=== PATIENT | female | born 1990 | race Caucasian/White ===

== ENCOUNTER 2021-11-20 02:50 | Inpatient (IN) | payer OTHER ==
[2021-11-20] VITALS (28 sets, daily range): BP systolic 51–193; BP diastolic 25–174
[~2021-11-20] VITALS: Ht 157.5 cm; Wt 121.7 kg
[~2021-11-20 02:50] MED LIST: KEFLEX500 M1 PO; SPRINTEC1 EACH PO
[2021-11-20 05:37] LABS: HCO3 25.3 mmol/L (22.0-26.0); PCO2 27.9 mmHg (35.0-45.0); PO2 103.1 mmHg (80.0-100.0); pH 7.576 (7.360-7.450); sO2 98.5 % (92.0-98.0)
--- NOTE | 2021-11-20 07:29 | NUR ---
Patient arrived to the unit at 0445 via EMS. Patient placed on full ICU monitoring. RT at bedside. Pt O2 sats in the 60's. ETT in place 7.5, 23 at lip. Placed on vent, settings 500 AC 22 peep 18 100%. O2 sats went down into the 50's Immediately started bagging the patient and sat jumped to 100%. Continued to bag patient for about 15 minutes, placed back on vent and sats immediately started dropping. Bagged again as respiratory made changes to vent. Started Propofol, in addition to the Versed at 8 mg/hr and Fentanyl at 150 mcg/hr that was running upon admission. With increased sedation and changes to the TV, inc to 600, pt was able to maintain O2 sats 90-91%. ABG done. Results noted. 2 PIVs started. Antibiotics started. See documentation on intervantions for assessment details. Was unable to draw from PICC. Called lab to draw all initial labs. Delgado in place. 750 mls.
[2021-11-20 07:34] LABS: CALCIUM 8.1 mg/dL (8.5-10.1); CREATININE 0.9 mg/dL (0.6-1.0); POTASSIUM 3.8 mmol/L (3.5-5.1)
[2021-11-20 07:35] LABS: INR 1.12; PROTIME 12.1 Seconds (10.5-12.1)
[2021-11-20 07:41] LABS: APTT < 20.0 Seconds (24.5-32.8)
[2021-11-20 07:49] LABS: ALBUMIN 3.7 g/dL (3.4-5.0); PHOSPHORUS 2.2 mg/dL (2.5-4.9); TOTAL BILIRUBIN 0.6 mg/dL (0.2-1.0); TOTAL PROTEIN 7.3 g/dL (6.4-8.2)
[2021-11-20 07:57] LABS: CHOLESTEROL 311 mg/dL (<200); HDL CHOLESTEROL 24 mg/dL (>40); TRIGLYCERIDE 614 mg/dL (<150); VLDL 123 mg/dL (<40)
[2021-11-20 09:10] LABS: BE(vivo) 6.1 mmol/L (-2 to +3); HCO3 29.5 mmol/L (22.0-26.0); PCO2 38.2 mmHg (35.0-45.0); PO2 58.7 mmHg (80.0-100.0); pH 7.506 (7.360-7.450); sO2 92.7 % (92.0-98.0)
--- NOTE | 2021-11-20 12:50 | NUR ---
5FRTL CL PLACED, PT HAS A CURRENT DLPICC IN RT ARM THAT HAD A SOILED DRESSING WHEN PT TRANSFERRED FROM OTHER FACILITY
[2021-11-20 14:13] LABS: HEMATOCRIT 35.7 % (37.0-47.0); HEMOGLOBIN 11.3 gm/dL (12.0-15.0); MCH 31.7 pg (26.0-34.0); MCHC 31.7 g/dL (28.0-37.0); MCV 99.9 fL (80.0-100.0); RBC 3.58 mil/uL (4.20-5.00); WBC 19.4 thou/uL (4.0-11.0)
[2021-11-20 14:23] LABS: CALCIUM 7.4 mg/dL (8.5-10.1); CREATININE 1.1 mg/dL (0.6-1.0)
[2021-11-20 14:41] LABS: BE(vivo) -1.5 mmol/L (-2 to +3); HCO3 22.9 mmol/L (22.0-26.0); PCO2 37.5 mmHg (35.0-45.0); PO2 89.7 mmHg (80.0-100.0); pH 7.404 (7.360-7.450); sO2 96.9 % (92.0-98.0)
[2021-11-20 14:44] LABS: URINE BILIRUBIN NEGATIVE (Negative); URINE BLOOD 3+ (Negative); URINE CLARITY CLEAR; URINE COLOR YELLOW; URINE GLUCOSE-RANDOM* 2+ (Negative); URINE KETONES TRACE (Negative); URINE LEUKOCYTES-REFLEX NEGATIVE (Negative); URINE NITRITE-REFLEX NEGATIVE (Negative); URINE PROTEIN (DIPSTICK) 2+ (Negative); URINE SPECIFIC GRAVITY 1.025 (1.005-1.035); URINE UROBILINOGEN 0.2 E.U./dl (0.2-1.0)
[2021-11-20 15:00] LABS: CASTS None Seen /LPF (None Seen); SQUAMOUS None Seen /LPF (0-3); URINE RBC >20 Many /HPF (NONE SEEN); URINE WBC-REFLEX None Seen /HPF (0-5)
[2021-11-20 15:01] LABS: BACTERIA-REFLEX None Seen /HPF (None Seen); CRYSTALS None Seen /LPF (None Seen)
--- NOTE | 2021-11-20 21:59 | NUR ---
0859-IN ROOM W PT. PT'S HR DOWN SUDDENLY TO 40'S,ANIYAH RHYTHM-NO PULSE PALPATED-CODE BLUE CALLED & CPR STARTED IMMED. SEE CODE BLUE NOTES.--VW 0945-PAGE TO .--VW 0950-PAGE TO (COVERING PT,PER ).--VW 1000-SPOKE W PT'S MOM,UPDATED. MUCH EMO SUPPORT GIVEN.--VW 1100- E.R. PHYSICIAN & HAD DISCUSSED HYPOTHERMIA PROTOCOL WHEN AT BEDSIDE p CODE. D/W WHEN HE WAS UPDATED RE:EVENTS THAT TOOK PLACE. SPOKE W DR.S AYALA & ANNABEL RE:CONSULTS. IV THERAPY AT BEDSIDE.--VW 1200-ECHO DONE.--VW 1300-ALL LABS ORDERED PREVIOUSLY SENT ONCE LINE WAS VERIFIED.--VW 1430-UPDATED VIA [employer] PhotosO TEXT.--VW
[2021-11-21] VITALS (63 sets, daily range): BP systolic 60–141; BP diastolic 18–94
--- NOTE | 2021-11-21 01:50 | 2DMMODE ---
[facility] [address] [place] [address] 2 D/M-MODE ECHOCARDIOGRAM Name: LALO SIU Room #: 237-P ADM IN M.R.#: [id number] Admission: 11/20/21 Attend Phys: Ar San MD Discharge: Date of : 89 Report #: [id number] THIS REPORT FOR: cc: FAM - No family physician/PCP FAM - No family physician/PCP Man Chaparro MD ~ APPROVED REPORT Study performed: 11/20/2021 11:48:01 EXAM: Comprehensive 2D, Doppler, and color-flow Echocardiogram Patient Location: In-Patient Room #: 237 Status: on-call BSA: 2.08 HR: 90 bpm BP: 129/94 mmHg Rhythm: NSR Other Information Study Quality: Adequate Technically limited study due to body habitus, inability to position patient, patient on ventilator. Indications Hypertension/HDD Post Code blue + Covid-19 2D Dimensions IVSd: 8.72 (7-11mm) LVOT Diam: 18.80 (18-24mm) LVDd: 42.72 mm PWd: 9.92 (7-11mm) Ascending Ao: 23.58 (22-36mm) LVDs: 32.60 (25-40mm) Left Atrium: 22.78 (27-40mm) Aortic Root: 24.15 mm LV Single Plane 4CH: 46.19 % LV Single Plane 2CH: 52.15 % Volumes Left Atrial Volume (Systole) Single Plane 4CH: 14.39 mL Single Plane 2CH: 14.63 mL Aortic Valve [facility] [address] [place] [address] 2 D/M-MODE ECHOCARDIOGRAM Name: LALO SIU Room #: 237-P [facility] IN .R.#: [id number] Admission: 11/20/21 Attend Phys: Ar San MD Discharge: Date of : 89 Report #: [id number] AoV Peak Cornell.: 1.01 m/s AO Peak Gr.: 4.38 mmHg LVOT Max P.63 mmHg LVOT Max V: 0.95 m/s TEMI Vmax: 2.61 cm2 Mitral Valve E/A Ratio: 1.6 MV Decel. Time: 157.04 ms MV E Max Cornell.: 0.79 m/s MV A Cornell.: 0.49 m/s MV PHT: 45.54 ms IVRT: 101.50 ms Pulmonary Valve PV Peak Cornell.: 0.72 m/s PV Peak Gr.: 2.08 mmHg NH End Vmax: 1.66 m/s Pulmonary Vein P Vein S: 0.34 m/s P Vein D: 0.38 m/s P Vein S/D Ratio: 0.89 Tricuspid Valve TR Peak Cornell.: 2.77 m/s RAP Estimate: 7.00 mmHg TR Peak Gr.: 30.77 mmHg RVSP: 37.00 mmHg Left Ventricle The left ventricle is normal size. Regional wall motion abnormalities are noted. There is normal left ventricular wall thickness. Left ventricular systolic function is mildly decreased. LVEF is 45-50%. The left ventricular diastolic function is normal. Right Ventricle The right ventricle is normal size. The right ventricular systolic function is normal. Atria The left atrium size is normal. The right atrium size is normal. Aortic Valve Aortic valve is trileaflet. No aortic regurgitation is present. There is no aortic valvular stenosis. Mitral Valve The mitral valve is normal in structure. Trace mitral regurgitation. [facility] [address] [address] 2 D/M-MODE ECHOCARDIOGRAM Name: LALO SIU Room #: 237-P ADM IN M.R.#: [id number] Admission: 11/20/21 Attend Phys: Ar San MD Discharge: Date of : 89 Report #: [id number] No evidence of mitral valve stenosis. Tricuspid Valve The tricuspid valve is normal in structure. Mild tricuspid regurgitation. PAP 37 mmHg Pulmonic Valve The pulmonary valve is normal in structure. Trace pulmonic regurgitation. Great Vessels The aortic root is normal in size. IVC is normal in size and collapses >50% with inspiration. Pericardium Mild circumferential pericardial effusion. Small right pleural effusion. <Conclusion> The left ventricle is normal size. LVEF is 30-35%. Regional wall motion abnormalities are noted. The right ventricle is normal size. Aortic valve is trileaflet. The mitral valve is normal in structure. Trace mitral regurgitation. The tricuspid valve is normal in structure. Mild tricuspid regurgitation. PAP 37 mmHg The pulmonary valve is normal in structure. Trace pulmonic regurgitation. The aortic root is normal in size. Mild circumferential pericardial effusion without echo evidence of tamponade. Small right pleural effusion. <ELECTRONICALLY SIGNED> By: Man Chaparro MD 11/21/21148 8 8 Man Chaparro MD /INF
[2021-11-21 03:05] LABS: GLYCOHEMOGLOBIN (HGB A1C) 6.1 % (4.8-5.6)
[2021-11-21 05:35] LABS: BE(vivo) -0.5 mmol/L (-2 to +3); HCO3 24.6 mmol/L (22.0-26.0); PCO2 42.2 mmHg (35.0-45.0); PO2 58.4 mmHg (80.0-100.0); pH 7.383 (7.360-7.450); sO2 89.9 % (92.0-98.0)
--- NOTE | 2021-11-21 06:00 | NUR ---
remains intubated and sedated with fentnyl and versed heaprin gtt per protocal. not progressing toward goals.
[2021-11-21 07:11] LABS: HIV ANTIBODY Non Reactive (Non Reactive)
[2021-11-21 07:18] LABS: HEMATOCRIT 30.7 % (37.0-47.0); MCH 32.5 pg (26.0-34.0); MCHC 32.7 g/dL (28.0-37.0); MCV 99.5 fL (80.0-100.0); PLATELET COUNT 203 thou/uL (150-400); RBC 3.08 mil/uL (4.20-5.00); RDW 14.6 % (10.5-14.5); WBC 19.7 thou/uL (4.0-11.0)
[2021-11-21 07:29] LABS: ALBUMIN 3.3 g/dL (3.4-5.0); DIRECT BILIRUBIN 0.1 mg/dL (<0.1-0.2); MAGNESIUM 2.9 mg/dL (1.8-2.4); POTASSIUM 3.5 mmol/L (3.5-5.1); TOTAL BILIRUBIN 0.4 mg/dL (0.2-1.0); TOTAL PROTEIN 6.5 g/dL (6.4-8.2)
--- NOTE | 2021-11-21 07:39 | EKG ---
[address] [address] ELECTROCARDIOGRAM REPORT Name: LALO SIU Room #: 237-P ADM IN M.R.#: [id number] Admission: 11/20/21 Attend Phys: Ar San MD Discharge: Date of : 89 Report #: [id number] [facility] Test Date: 2021-11-20 Test Time: 09:22:44 Pat Name: LALO SIU Department: Room: 237 P Gender: F Health Care Social Worker: CONSTANCE : 1990 Requested By: Keyshawn Whittington Order Number: [id number] MD: Edil Perez Measurements Intervals [place] Rate: 83 P: AR: QRS: 101 QRSD: 95 T: -25 QT: 385 QTc: 453 Interpretive Statements NSR Borderline right axis deviation Borderline repolarization abnormality No previous ECG available for comparison Electronically Signed On 11-21-2021 7:39:08 BUSINESS UNIT MANAGER by Edil Perez [email or web address] <ELECTRONICALLY SIGNED> By: Edil Perez MD, [facility] 11/21/21 0739 0922 1 Edil Perez MD, FACC /EPI
[2021-11-21 07:56] LABS: BE(vivo) -2.9 mmol/L (-2 to +3); HCO3 22.3 mmol/L (22.0-26.0); PCO2 40.4 mmHg (35.0-45.0); sO2 83.1 % (92.0-98.0)
[2021-11-21 07:57] LABS: PO2 48.8 mmHg (80.0-100.0)
[2021-11-21 08:36] LABS: ABSOLUTE NEUTROPHILS 17.9 thou/uL (1.4-8.2); METAMYELOCYTES 1 %
--- NOTE | 2021-11-21 09:30 | NUR ---
Per Dr Thomas, dc ivf once tube feed/water flush tolerance demonstrated
--- NOTE | 2021-11-21 10:36 | NUR ---
WOUND CARE CONSULT; I AM HERE TODAY TO ASSESS THE PATIENT. THE RN STATES NO WOUNDS AND NO NEED TO FOLLOW. WOUND CARE WILL SIGN OFF.
--- NOTE | 2021-11-21 13:32 | NUR ---
DX: COVID, Sepsis 30 year old female, unvaccinated, no pertinent medical history who presents to as a direct admit for [facility]. Pt was admitted to [facility] about 9 days for COVID PNA. Over the last 48 hrs the pt decompensated, she was on BIPAP with subsequent intubation last evening due to abnormal ABG and P02 OF 40%. Multiple repeated ABG and CXR. Sats prior to transfer was 76% and pt was bagged most of the shift. She had increased LFTS, CPK, and Lipase, the latter of which ahs trended down. She arrived per EMS with reported bagging due to cyanosis. She is critically ill. He 02 sats on arrival to ICU was in the 50's she was again bagged with sats back to 95% but quickly desaturated to 80's upon reconnection. She is currently on levophed, versed, and fentanyl gtt. At [facility] she was given Ivermectin, IV remdesvir , IV dexamethasone , Vitamin bundle and IV abx. Cm called her mom nasra # , left message requesting a call back. Discussed during los with the attending physician. Enhanced isolation. Vent support 100% FIO2 with peep 16. Will cont. following as needed.
[2021-11-21 20:31] LABS: BE(vivo) -5.5 mmol/L (-2 to +3); HCO3 19.2 mmol/L (22.0-26.0); PCO2 34.5 mmHg (35.0-45.0); PO2 64.4 mmHg (80.0-100.0); pH 7.364 (7.360-7.450); sO2 92.1 % (92.0-98.0)
[2021-11-22] VITALS (69 sets, daily range): BP systolic 78–153; BP diastolic 29–76
[2021-11-22 04:21] LABS: HEMATOCRIT 23.4 % (37.0-47.0); MCH 32.5 pg (26.0-34.0); MCHC 32.4 g/dL (28.0-37.0); MCV 100.2 fL (80.0-100.0); PLATELET COUNT 161 thou/uL (150-400); RBC 2.33 mil/uL (4.20-5.00); RDW 14.8 % (10.5-14.5); WBC 18.4 thou/uL (4.0-11.0)
[2021-11-22 05:34] LABS: HEMOGLOBIN 7.6 gm/dL (12.0-15.0)
[2021-11-22 05:54] LABS: ALBUMIN 3.4 g/dL (3.4-5.0); CREATININE 1.9 mg/dL (0.6-1.0); DIRECT BILIRUBIN 0.1 mg/dL (<0.1-0.2); PHOSPHORUS 1.9 mg/dL (2.5-4.9); TOTAL BILIRUBIN 0.5 mg/dL (0.2-1.0); TOTAL PROTEIN 6.1 g/dL (6.4-8.2)
[2021-11-22 06:05] LABS: POTASSIUM 2.9 mmol/L (3.5-5.1)
[2021-11-22 08:43] LABS: ABSOLUTE NEUTROPHILS 16.4 thou/uL (1.4-8.2); ANISOCYTOSIS SLIGHT; METAMYELOCYTES 2 %; MYELOCYTES 2 %; NUCLEATED RBCS 3 /100WBC; TOXIC GRANULATION SLIGHT
[2021-11-22 14:17] LABS: HEMOGLOBIN 8.4 gm/dL (12.0-15.0)
[2021-11-22 14:19] LABS: HEMATOCRIT 25.7 % (37.0-47.0)
--- NOTE | 2021-11-22 14:27 | NUR ---
Discussed during unite rounds and with attending physician. Cont. to require vent support, Tube fed for nutritional support. Message left for her mom yesterday and no return call back. Bedside nurse notified cm and she was providing her mom with update with change in condition today and Pita mom lorrine just hung up, bedside nurse passed on to MD to reach out to her mom. Levophed gtt, oxygen saturation cont to drop under 90% off and on today. Abnormal labs, low hgb and potassium. Remains on Covid isolation. Will cont. following as needed.
--- NOTE | 2021-11-22 15:16 | NUR ---
PT FAMILY CALLED FOR AN UPDATE. WHILE GIVING AN UPDATE FAMILY HUNG UP ON RN BEFORE THEY COULD FINISH. CASE MANAGEMENT AND CHARGE NURSE NOTIFIED
--- NOTE | 2021-11-22 15:17 | NUR ---
UNABLE TO TAKE OFF PT WEDDING RING DUE TO EDEMA. RING CUTTER USED TO REMOVE RING. RING GIVEN TO SECURITY TO HOLD.
--- NOTE | 2021-11-22 18:35 | NUR ---
NOTIFED ELY OF PT POSITIVE FLUID BALANCE. ORDERED ALBUMIN AND LASIX. RN ADDED MORNING LABS PER DOCTOR ORDER
[2021-11-22 23:07] LABS: HEMOGLOBIN 6.7 gm/dL (12.0-15.0); RDW 21.3 % (10.5-14.5); WBC 17.9 thou/uL (4.0-11.0)
[2021-11-22 23:09] LABS: HEMATOCRIT 20.2 % (37.0-47.0); MCH 30.4 pg (26.0-34.0); RBC 2.19 mil/uL (4.20-5.00)
[2021-11-22 23:10] LABS: ALBUMIN 3.9 g/dL (3.4-5.0); CALCIUM 6.7 mg/dL (8.5-10.1); CREATININE 2.6 mg/dL (0.6-1.0)
[2021-11-22 23:28] LABS: POTASSIUM 4.3 mmol/L (3.5-5.1)
[2021-11-22 23:30] LABS: MCV 92.1 fL (80.0-100.0)
[2021-11-23] VITALS (93 sets, daily range): BP systolic 90–171; BP diastolic 41–118
[2021-11-23 03:25] LABS: BE(vivo) -4.5 mmol/L (-2 to +3); HCO3 20.6 mmol/L (22.0-26.0); PCO2 37.6 mmHg (35.0-45.0); PO2 46.7 mmHg (80.0-100.0); pH 7.357 (7.360-7.450); sO2 81.2 % (92.0-98.0)
[2021-11-23 05:16] LABS: ALBUMIN 3.8 g/dL (3.4-5.0); CALCIUM 7.2 mg/dL (8.5-10.1); CREATININE 2.8 mg/dL (0.6-1.0); DIRECT BILIRUBIN 0.2 mg/dL (<0.1-0.2); PHOSPHORUS 1.7 mg/dL (2.5-4.9); POTASSIUM 4.1 mmol/L (3.5-5.1); TOTAL BILIRUBIN 0.6 mg/dL (0.2-1.0); TOTAL PROTEIN 6.2 g/dL (6.4-8.2)
[2021-11-23 09:24] LABS: RBC 2.11 mil/uL (4.20-5.00); WBC 16.5 thou/uL (4.0-11.0)
[2021-11-23 09:27] LABS: HEMOGLOBIN 6.5 gm/dL (12.0-15.0); MCH 31.1 pg (26.0-34.0); MCHC 33.2 g/dL (28.0-37.0); MCV 93.5 fL (80.0-100.0); RDW 21.5 % (10.5-14.5)
[2021-11-23 09:32] LABS: HEMATOCRIT 19.7 % (37.0-47.0)
[2021-11-23 13:59] LABS: BE(vivo) -5.2 mmol/L (-2 to +3); HCO3 20.2 mmol/L (22.0-26.0); PCO2 38.6 mmHg (35.0-45.0); PO2 82.2 mmHg (80.0-100.0); pH 7.336 (7.360-7.450); sO2 95.5 % (92.0-98.0)
[2021-11-23 21:20] LABS: HEMATOCRIT 22.9 % (37.0-47.0); HEMOGLOBIN 7.7 gm/dL (12.0-15.0)
[2021-11-24] VITALS (93 sets, daily range): BP systolic 99–157; BP diastolic 35–76
[2021-11-24 05:08] LABS: BE(vivo) -3.7 mmol/L (-2 to +3); HCO3 21.4 mmol/L (22.0-26.0); PCO2 39.1 mmHg (35.0-45.0); PO2 63.7 mmHg (80.0-100.0); pH 7.357 (7.360-7.450); sO2 91.6 % (92.0-98.0)
[2021-11-24 05:28] LABS: HEMATOCRIT 22.6 % (37.0-47.0); HEMOGLOBIN 7.6 gm/dL (12.0-15.0); MCH 29.7 pg (26.0-34.0); MCHC 33.4 g/dL (28.0-37.0); MCV 88.7 fL (80.0-100.0); PLATELET COUNT 54 thou/uL (150-400); RBC 2.55 mil/uL (4.20-5.00); RDW 19.8 % (10.5-14.5); WBC 11.8 thou/uL (4.0-11.0)
[2021-11-24 05:29] LABS: ALBUMIN 3.5 g/dL (3.4-5.0); CALCIUM 7.6 mg/dL (8.5-10.1); CREATININE 3.4 mg/dL (0.6-1.0); MAGNESIUM 2.6 mg/dL (1.8-2.4); PHOSPHORUS 2.3 mg/dL (2.5-4.9); POTASSIUM 3.9 mmol/L (3.5-5.1); TOTAL BILIRUBIN 0.7 mg/dL (0.2-1.0); TOTAL PROTEIN 5.8 g/dL (6.4-8.2)
[2021-11-24 06:21] LABS: INR 1.15; PROTIME 12.5 Seconds (10.5-12.1)
[2021-11-24 08:19] LABS: ABSOLUTE NEUTROPHILS 10.6 thou/uL (1.4-8.2); METAMYELOCYTES 2 %; NUCLEATED RBCS 2 /100WBC
[2021-11-24 08:20] LABS: ANISOCYTOSIS 2+; PLATELET ESTIMATE DECREASED; POIKILOCYTOSIS 1+
[2021-11-24 09:27] LABS: T-SPOT.TB Negative
--- NOTE | 2021-11-24 09:30 | NUR ---
CVP-25. BUN/CR increasing. call placed to Dr. Dc, then md immediately present. updated on pt status.
[2021-11-24 13:41] LABS: HEMATOCRIT 21.8 % (37.0-47.0); HEMOGLOBIN 7.3 gm/dL (12.0-15.0)
--- NOTE | 2021-11-24 19:48 | NUR ---
called betito Nuñez to update her on pt status. discussed pt opening her eyes to stimulation but not "tracking", remains on vent with optimal settings for her lungs, off iv medication for bp support, sedation for pain and amnesic infusing continously for pt comfort. she volunteered that she was at work and had to get back to work, therefore conversation was prioritized and limited. she was grateful and thankful for update.
[2021-11-24 19:56] LABS: HEMOGLOBIN 7.3 gm/dL (12.0-15.0)
[2021-11-25] VITALS (97 sets, daily range): BP systolic 75–137; BP diastolic 32–73
[2021-11-25 05:31] LABS: ABSOLUTE NEUTROPHILS 11.2 thou/uL (1.4-8.2); BASOPHILS 0.1 % (0.0-2.0); EOSINOPHILS 0.5 % (0.0-3.0); HEMATOCRIT 22.8 % (37.0-47.0); HEMOGLOBIN 7.5 gm/dL (12.0-15.0); LYMPHOCYTES 4.3 % (24.0-44.0); MCH 29.5 pg (26.0-34.0); MCHC 33.1 g/dL (28.0-37.0); MONOCYTES 2.7 % (1.0-8.0); PLATELET COUNT 44 thou/uL (150-400); POLYS 92.4 % (36.0-66.0); RBC 2.56 mil/uL (4.20-5.00); RDW 19.9 % (10.5-14.5); WBC 12.1 thou/uL (4.0-11.0)
[2021-11-25 05:51] LABS: ALBUMIN 3.6 g/dL (3.4-5.0); CREATININE 4.2 mg/dL (0.6-1.0); MAGNESIUM 2.7 mg/dL (1.8-2.4); PHOSPHORUS 3.1 mg/dL (2.5-4.9); TOTAL BILIRUBIN 0.4 mg/dL (0.2-1.0); TOTAL PROTEIN 6.5 g/dL (6.4-8.2)
[2021-11-25 09:28] LABS: BE(vivo) -4.6 mmol/L (-2 to +3); HCO3 21.8 mmol/L (22.0-26.0); PCO2 46.5 mmHg (35.0-45.0)
[2021-11-25 09:29] LABS: PO2 37.1 mmHg (80.0-100.0); pH 7.289 (7.360-7.450)
[2021-11-25 10:00] LABS: HEMOGLOBIN 7.7 gm/dL (12.0-15.0)
[2021-11-25 10:02] LABS: HEMATOCRIT 23.3 % (37.0-47.0)
--- NOTE | 2021-11-25 10:53 | NUR ---
Discussed using unit rounds and during los with the attending physician. Enhanced covid +, isolation. Vent, tpn. Desaturation into 40's and 70's , FIO2 increased to 100%. Getting CXR and ABG. No anticipated dc over weekend. Will cont. following as needed. CM has called nasra ogden with no return call.
[2021-11-25 18:20] LABS: ALBUMIN 3.5 g/dL (3.4-5.0); CALCIUM 7.7 mg/dL (8.5-10.1); POTASSIUM 4.8 mmol/L (3.5-5.1); TOTAL BILIRUBIN 0.9 mg/dL (0.2-1.0); TOTAL PROTEIN 6.2 g/dL (6.4-8.2)
[2021-11-25 18:24] LABS: CREATININE 5.2 mg/dL (0.6-1.0)
--- NOTE | 2021-11-25 19:02 | NUR ---
Rn arrived to patient SpO2 50-60%. Treanding down all night, aware. Called Dr. Thomas at 0814. During Rounds, ordered Lasix, X-ray, ABG, and Labs. ABG critical- CAlled Dr. Thomas with results at 0950, no new orders. Mother called at 1050 and update on current condition. CAlled Carmen at 1450, patient unresponsive to lasix. No output. Albumin and 60 mg lasix order. CAlled Carmen at 1545, BP decreasing. Levo gtt started. CAlled carmen at 1741, with crital Latic. Bolus and Fluids ordered. CAlled mother at 1815 about further deteriation of status and potiental outcomes. Mother okay to come visit per computer operations manager. Must wear full PPE.
[2021-11-25 21:29] LABS: HEMATOCRIT 23.9 % (37.0-47.0); HEMOGLOBIN 7.7 gm/dL (12.0-15.0)
--- NOTE | 2021-11-25 21:32 | NUR ---
Patients mother, Lorrine to bedside at 2100. RN spoke directly with consulting solution manager, Robert in person regarding allowing patients mother to enter COVID positive room. Clarified with Margie and mother is allowed. Discussed risks and importance of PPE. RN donned patients mothers PPE with her and entered room at 2115. Mother to bedside for about 15 minutes. Answered all questions and discussed concerns.
--- NOTE | 2021-11-25 22:26 | NUR ---
Pts brother Breanna came to ICU at 2214. Observed patient from outside of room through glass. Discussed reality of outlook and patient status. Answered all questions. Patient left ICU at 2229.
[2021-11-26] VITALS (91 sets, daily range): BP systolic 79–155; BP diastolic 24–70
--- NOTE | 2021-11-26 03:42 | NUR ---
This RN spoke to MTN at 0340 this morning regarding patient. Referral number is [id number].
[2021-11-26 04:03] LABS: ALBUMIN 3.3 g/dL (3.4-5.0); ANION GAP 20 mmol/L (7-16); BUN 50 mg/dL (7-18); CALCIUM 6.7 mg/dL (8.5-10.1); CHLORIDE 106 mmol/L (98-107); CO2 15 mmol/L (21-32); CREATININE 5.6 mg/dL (0.6-1.0); GLUCOSE 176 mg/dL (74-106); MAGNESIUM 2.8 mg/dL (1.8-2.4); PHOSPHORUS 9.9 mg/dL (2.6-4.7); POTASSIUM 5.1 mmol/L (3.5-5.1); SGOT < 5 U/L (15-37); SODIUM 141 mmol/L (136-145); TOTAL BILIRUBIN 1.3 mg/dL (0.2-1.0); TOTAL PROTEIN 5.8 g/dL (6.4-8.2)
--- NOTE | 2021-11-26 04:13 | NUR ---
This RN spoke to Dr. Thomas at 0300 regarding patients lactic acid, poor urine output and vital signs. Orders received. Pt not progressing towards goals. Will continue to monitor.
[2021-11-26 04:15] LABS: MCH 30.4 pg (26.0-34.0); MCHC 30.6 g/dL (28.0-37.0); RBC 1.59 mil/uL (4.20-5.00); RDW 21.3 % (10.5-14.5); SGPT 5403 U/L (14-59); WBC 16.7 thou/uL (4.0-11.0)
[2021-11-26 04:22] LABS: HEMATOCRIT 15.8 % (37.0-47.0); HEMOGLOBIN 4.8 gm/dL (12.0-15.0); MCV 99.3 fL (80.0-100.0); PLATELET COUNT 15 thou/uL (150-400)
[2021-11-26 09:20] LABS: APTT 44.4 Seconds (24.5-32.8); PROTIME 31.5 Seconds (10.5-12.1)
[2021-11-26 09:27] LABS: INR 3.05
[2021-11-26 11:19] LABS: ABSOLUTE NEUTROPHILS 11.9 thou/uL (1.4-8.2); METAMYELOCYTES 3 %; MYELOCYTES 4 %; NUCLEATED RBCS 7 /100WBC
[2021-11-26 11:20] LABS: POLYCHROMASIA SLIGHT
[2021-11-26 11:21] LABS: ANISOCYTOSIS 2+
[2021-11-26 11:22] LABS: POIKILOCYTOSIS SLIGHT
[2021-11-26 18:29] LABS: MCH 29.2 pg (26.0-34.0); MCHC 28.6 g/dL (28.0-37.0); RDW 18.8 % (10.5-14.5)
[2021-11-26 18:32] LABS: MCV 102.3 fL (80.0-100.0); RBC 1.85 mil/uL (4.20-5.00); WBC 21.7 thou/uL (4.0-11.0)
[2021-11-26 18:56] LABS: HEMATOCRIT 18.9 % (37.0-47.0)
[2021-11-26 18:58] LABS: HEMOGLOBIN 5.4 gm/dL (12.0-15.0)
--- NOTE | 2021-11-26 19:36 | NUR ---
PATIENT NOT PROGRESSING TOWARDS THE PLAN OF CARE EVIDENCED BY CONTINUED NEED FOR BLOOD PRODUCTS AND HIGH VENTILATOR SETTINGS.
[2021-11-27 02:02] VITALS: BP 157/45
[2021-11-27 02:41] LABS: MCH 29.7 pg (26.0-34.0)
[2021-11-27 02:43] LABS: HEMATOCRIT 31.9 % (37.0-47.0); MCHC 28.5 g/dL (28.0-37.0); MCV 104.4 fL (80.0-100.0); RBC 3.05 mil/uL (4.20-5.00); RDW 17.3 % (10.5-14.5); WBC 26.4 thou/uL (4.0-11.0)
[2021-11-27 02:45] LABS: HEMOGLOBIN 9.1 gm/dL (12.0-15.0)
--- NOTE | 2021-11-27 03:25 | NUR ---
Patient went into cardiac arrest. See cardiopulmonary arrest record sheet in patients chart. Dr. James pronounced at 0207. MEN and all referring physicians notified. Patients brother, Chappie and brothers girlfriend to bedside. Patients belongings including cell phone, materials engineering technician and clothes taken home with brother. Family to call with home arrangements.
--- NOTE | 2021-11-28 07:45 | NUR ---
On 11/27/21, had 4 missed calls and voice message from zelda peter sister in-law # [phone], we were told to call you and given your number on what to do next, how to handle this since she passed and only have a few days to handle everything per zelda. Cm called her back on 11/27/21, passed on my condolences to the family. Education on picking a home or cremation society. Thank you i will call you on sunday if we have anymore question per zelda.
== END 2021-11-27 02:07 | DRG 870 ==
LOC: ICU 02:50
PROVIDERS: Internal Medicine; Internal Medicine Pulmonary Disease; Nurse Practitioner Family; Pediatrics; Specialist; ADMIT Hospitalist; ATTEND Hospitalist
PROC: 5A1955Z Respiratory Ventilation, Greater than 96 Consecutive Hours (ICD-10-PCS; principal; 2021-11-20)
PROC: 0BH17EZ Insertion of Endotracheal Airway into Trachea, Via Natural or Artificial Opening (ICD-10-PCS; principal; 2021-11-20)
PROC: 5A12012 Performance of Cardiac Output, Single, Manual (ICD-10-PCS; principal; 2021-11-20)
PROC: 02HV33Z Insertion of Infusion Device into Superior Vena Cava, Percutaneous Approach (ICD-10-PCS; principal; 2021-11-20)
PROC: XW033E5 Introduction of Remdesivir Anti-infective into Peripheral Vein, Percutaneous Approach, New Technology Group 5 (ICD-10-PCS; principal; 2021-11-20)
PROC: 30233M1 Transfusion of Nonautologous Plasma Cryoprecipitate into Peripheral Vein, Percutaneous Approach (ICD-10-PCS; 2021-11-21)
PROC: 30233N1 Transfusion of Nonautologous Red Blood Cells into Peripheral Vein, Percutaneous Approach (ICD-10-PCS; 2021-11-22)
PROC: 30233K1 Transfusion of Nonautologous Frozen Plasma into Peripheral Vein, Percutaneous Approach (ICD-10-PCS; 2021-11-24)
PROC: 2Y41X5Z Packing of Nasal Region using Packing Material (ICD-10-PCS; 2021-11-26)
PROC: 30233R1 Transfusion of Nonautologous Platelets into Peripheral Vein, Percutaneous Approach (ICD-10-PCS; 2021-11-26)
DX: A41.89 Other specified sepsis (principal); U07.1 COVID-19; J12.82 Pneumonia due to coronavirus disease 2019; J80 Acute respiratory distress syndrome; D65 Disseminated intravascular coagulation [defibrination syndrome]; I50.21 Acute systolic (congestive) heart failure; N17.0 Acute kidney failure with tubular necrosis; Z68.42 Body mass index [BMI] 45.0-49.9, adult; R04.2 Hemoptysis; I42.9 Cardiomyopathy, unspecified; E66.01 Morbid (severe) obesity due to excess calories; E03.9 Hypothyroidism, unspecified; R65.20 Severe sepsis without septic shock; I46.9 Cardiac arrest, cause unspecified; G47.33 Obstructive sleep apnea (adult) (pediatric); D64.9 Anemia, unspecified; R74.01 Elevation of levels of liver transaminase levels; E87.6 Hypokalemia; R04.0 Epistaxis; R31.9 Hematuria, unspecified; R73.9 Hyperglycemia, unspecified; R57.1 Hypovolemic shock
CPT/HCPCS: 10078; 65040; 85076